=== PATIENT | female | born 1935 ===

== ENCOUNTER 2017-08-06 09:44 | Emergency (ER) | payer MEDICARE ==
--- NOTE | 2017-08-06 10:33 | RAD ---
3 VIEWS LEFT ANKLE: Date: 08/06/17 HISTORY: Fall. Injury. COMPARISON: None. FINDINGS: There is lateral soft tissue swelling. There is diffuse bone demineralization. There does appear to b e a joint effusion. Fracture is not appreciated. Vascular calcifications are identified. IMPRESSION: Soft tissue swelling. Possible joint effusion. If there is concern for ligamentous injury, MRI can be performed. No fracture. POS: [facility]
== END 2017-08-06 10:35 | disposition home or self-care (01) ==
LOC: MADERS 09:44
DX: S93.402A Sprain of unspecified ligament of left ankle, initial encounter (principal); W18.30XA Fall on same level, unspecified, initial encounter